=== PATIENT | male | born 1995 | race American Indian/Alaskan Native ===

== ENCOUNTER 2024-11-21 19:06 | Emergency (ER) | payer BC, MEDICAID, SELFPAY ==
[2024-11-21 19:20] VITALS: BP 125/90; PULSE 88; RESP 16; TEMP 36.2; O2SAT 97; BMI 27.0
[2024-11-21] MEDS: tetanus-dipt-pertussis 0.5 mL SDV IM (21:49)
[2024-11-21] MEDS: lidocaine-epi 2% 20 mL INJ 10 ML INJECTION (22:05)
--- NOTE | 2024-11-22 | ED_ITS ---
Documented by User: VAL Ontiveros 11/22/24 00:11 HPI - Wound/Laceration General: Chief Complaint: Wound/Laceration Stated Complaint: Fell into a barwire fence Time Seen by Provider: 11/21/24 20:36 Source: patient Mode of arrival: ambulatory Limitations: no limitations History of Present Illness: Patient is a 29-year-old male who presents the ED after accidentally running into a [place] wire fence while working outside. He presents with a couple small lacerations to his right arm. No other injuries reported. States his tetanus is not up-to-date. Onset (ago): hour(s) Extremity Location: Right: arm Place: outdoors Patient tetanus UTD: No Context: accidental Associated symptoms: Reports no associated symptoms; Denies chills, fever(s), nausea or vomiting Related Data Allergies Allergy/AdvReac Type Severity Reaction Status Date / Time No Known Allergies Allergy Verified 11/21/24 19:24 Review of Systems General: Reports: 10 or more systems reviewed and unremarkable except in HPI and below Const: Denies: fever(s) or chills Card: Denies: chest pain Resp: Denies: dyspnea GI: Denies: abdominal pain, nausea, vomiting or diarrhea Musc: Denies: extremity pain or joint pain Skin/Breast: Reports: new lesions (2 small lacerations to right arm); Denies: rash, skin pain or skin tenderness Neuro: Denies: headache(s) Physical Exam Const: COMMON NORMALS: no acute distress, average body habitus, patient oriented x3, no limitations, healthy appearing, alert and well nourished HENMT: COMMON NORMALS: normocephalic and atraumatic HEAD & SCALP: normocephalic and atraumatic Neck/C-Spine: COMMON NORMALS: full ROM, no lymphadenopathy, supple and no meningeal signs Resp: COMMON NORMALS: normal respiratory effort, No use of accessory muscles and clear to auscultation bilaterally AUSCULTATION: clear to auscultation bilaterally Cardio: COMMON NORMALS: regular rate and regular rhythm RATE: regular rate RHYTHM: regular rhythm Extremity: COMMON NORMALS: full ROM and capillary refill normal Neuro: COMMON NORMALS: patient oriented x3 SENSORIUM/ORIENTATION: Yes alert MENINGEAL SIGNS: Yes no meningeal signs Skin: COMMON NORMALS: turgor normal NARRATIVE SKIN EXAM: Small 1 cm laceration to right upper arm. Adjacent to this, there is a small superficial abrasion. GENERAL SKIN EXAM: turgor normal Procedures Laceration Laceration 1: Side (If applicable): right Size (cm): 1 Description: linear Depth: simple, single layer Local Anesthetic: lidocaine 2% and with epi Amount of anesthesia used (mL): 1 Pre-repair: wound explored Skin layer closed with: nylon Size (cm): 5-0 Number of sutures: 1 Technique: simple, interrupted Course Vital Signs: Vital signs: Vital Signs Temperature 97.2 F L 11/21/24 19:20 Pulse Rate 88 11/21/24 19:20 Respiratory Rate 16 11/21/24 19:20 Blood Pressure 125/90 11/21/24 19:20 Pulse Oximetry 97 11/21/24 19:20 Oxygen Delivery Me thod Room Air 11/21/24 19:20 MDM - Wound/Laceration Medical Decision Making Tetanus was updated today. Laceration was repaired, see the procedure note. No other injuries. Wound was cleaned, no need for antibiotics. Discharged home with wound care discussed, return precautions given. No radiology studies performed this visit Discharge Plan Discharge Patient Disposition: Home Clinical Impression: Laceration of right upper arm Qualifiers: Encounter type: initial encounter Qualified Code(s): S41.111A - Laceration without foreign body of right upper arm, initial encounter Condition: Stable Discharge Orders: Discharge ED (Routine); Ordered 11/21/24 Ordered By: Kirby Sosa Patient Instructions: Laceration (ED) Activity Restrictions/Additional Instructions: Sutures out in 7 days. Ibuprofen and Tylenol for pain. Monitor for any signs of infection and return if so. 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 Documented by User: Arie Casiano DO 11/24/24 06:48 HPI - Wound/Laceration General: Chief Complaint: Wound/Laceration Stated Complaint: Fell into a barwire fence Time Seen by Provider: 11/21/24 20:36 Related Data Allergies Allergy/AdvReac Type Severity Reaction Status Date / Time No Known Allergies Allergy Verified 11/21/24 19:24 Course Vital Signs: Vital signs: Vital Signs Temperature 97.2 F L 11/21/24 19:20 Pulse Rate 88 11/21/24 19:20 Respiratory Rate 16 11/21/24 19:20 Blood Pressure 125/90 11/21/24 19:20 Pulse Oximetry 97 11/21/24 19:20 Oxygen Delivery Me thod Room Air 11/21/24 19:20 MDM - Wound/Laceration Medical Decision Making Tetanus was updated today. Laceration was repaired, see the procedure note. No other injuries. Wound was cleaned, no need for antibiotics. Discharged home with wound care discussed, return precautions given. Chart reviewed Discharge Plan Discharge Patient Disposition: Home Clinical Impression: Laceration of right upper arm Qualifiers: Encounter type: initial encounter Qualified Code(s): S41.111A - Laceration without foreign body of right upper arm, initial encounter Condition: Stable Discharge Orders: Discharge ED (Routine); Ordered 11/21/24 Ordered By: Kirby Sosa Patient Instructions: Laceration (ED) Activity Restrictions/Additional Instructions: Sutures out in 7 days. Ibuprofen and Tylenol for pain. Monitor for any signs of infection and return if so. 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
== END 2024-11-21 22:21 | disposition home or self-care (01) ==
PROVIDERS: Emergency Provider Physician Assistant
DX: S41.111A Laceration without foreign body of right upper arm, initial encounter (principal); W26.8XXA Contact with other sharp object(s), not elsewhere classified, initial encounter; Z23 Encounter for immunization
CPT/HCPCS: 12001; 90471; 90715; 99283; J9999

== ENCOUNTER 2025-02-03 18:49 | Emergency (ER) | payer SELFPAY ==
[2025-02-03 18:52] VITALS: BP 134/80; PULSE 96; RESP 16; TEMP 36.6; O2SAT 97; BMI 27.1
--- NOTE | 2025-02-03 19:17 | W.ED.SKABFB ---
HPI - Skin/Abscess/Foreign Bdy General: Chief complaint: Skin/Abscess/Foreign Body Stated complaint: tick bite Time Seen by Provider: 02/03/25 19:13 History of Present Illness: 29-year-old male presents emergency room with some pleuritic bumps on the front of his penis. He says he had some tick bites and the itching started after that. Says he is now concerned he might have Lyme disease. No pain. No vesicles. He says he has not been sexually active for several months now. Related Data Previous Rx's ?Medication ?Instructions ?Recorded triamcinolone acetonide 0.1 % 1 applic topical TID #30 grams 02/03/25 topical ointment Allergies Allergy/AdvReac Type Severity Reaction Status Date / Time No Known Allergies Allergy Verified 11/21/24 19:24 Review of Systems Narrative: Constitutional symptoms: Negative except as documented in HPI. Skin symptoms: Negative except as documented in HPI. Eye symptoms: Negative except as documented in HPI. ENMT symptoms: Negative except as documented in HPI. Respiratory symptoms: Negative except as documented in HPI. Cardiovascular symptoms: Negative except as documented in HPI. Gastrointestinal symptoms: Negative except as documented in HPI. Genitourinary symptoms: Negative except as documented in HPI. Musculoskeletal symptoms: Negative except as documented in HPI. Neurologic symptoms: Negative except as documented in HPI. Psychiatric symptoms: Negative except as documented in HPI. Endocrine symptoms: Negative except as documented in HPI. Physical Exam Narrative: EXAM NARRATIVE: General: Alert, no acute distress. Skin: warm and dry. Some small erythematous raised bumps on shaft of penis. 3 approximately. Does not appear to be herpetic. Head: Normocephalic Neck: Trachea midline Eye: Extraocular movements are intact. Ears, nose, mouth and throat: Oral mucosa moist Respiratory: Respirations are non-labored Musculoskeletal: Normal ROM Gastrointestinal: Abdomen does not appear distended Neurological: Alert and oriented, No focal neurological deficit observed. Psychiatric: Cooperative, appropriate mood & affect. Course Vital Signs: Vital signs: Vital Signs Temperature 97.9 F 02/03/25 18:52 Pulse Rate 96 02/03/25 18:52 Respiratory Rate 16 02/03/25 18:52 Blood Pressure 134/80 02/03/25 18:52 Pulse Oximetry 97 02/03/25 18:52 Oxygen Delivery Me thod Room Air 02/03/25 18:52 MDM - Skin/Abscess/Foreign Bdy Medicial Decision Making Assessment and plan: Genital rash - Discharged home - Discussed plan with patient. Answered any questions. - Evaluation and treatment of this problem were appropriate in the emergency setting. No radiology studies performed this visit Discharge Plan Discharge Patient Disposition: Home Clinical Impression: Rash Condition: Stable Prescriptions: New triamcinolone acetonide 0.1 % ointment 1 applic topical TID Qty: 30 0RF Discharge Orders: Discharge ED (Routine); Ordered 02/03/25 Ordered By: Rose Sylvester Discharge Diet: Usual diet Discharge Activity: Increase activity as tolerated Patient Instructions: Opioid Safety, Pain Management Activity Restrictions/Additional Instructions: Thank you for choosing [facility] for your healthcare needs today. You have been screened and evaluated and felt safe for discharge. Health conditions do change or evolve sometimes and as such it is important that you follow up with your Primary Doctor to be re checked, 3-5 days is a general good time frame for follow up. You are always welcome to return to the ED for re assessment if your symptoms are worsening or you have new concerns Print Language: Divehi Coding Level of Care Code ED Manager Convention for Evy Rabago
[2025-02-03 19:44] VITALS: BP 134/86; PULSE 96; O2SAT 97
== END 2025-02-03 19:40 | disposition home or self-care (01) ==
PROVIDERS: Emergency Provider Emergency Medicine
DX: R21 Rash and other nonspecific skin eruption (principal)
CPT/HCPCS: 99283